=== PATIENT | male | born 1960 | race African-American/Black ===

== ENCOUNTER 2021-06-12 00:30 | Day surgery (SDC) | payer MEDICARE, SELFPAY ==
[2021-06-04 13:16] VITALS: BMI 29.0
[2021-06-12 09:46] VITALS: BP 152/103; PULSE 67; RESP 18; TEMP 36.2; O2SAT 96; BMI 24.5
--- NOTE | 2021-06-12 09:53 | P.PNAN_ITS ---
Anes - Initial Pre Proc Eval Procedure: Operation Date: 06/12/21 11:00 Proposed Procedures p Screening Colonoscopy - Orestes Durant MD Date/Time: 06/12/21 09:53 Surgeon: Orestes Durant MD Pre Op Diagnosis: neoplasm screening Patient Data Age: 61 Gender: M Height: 1.85 m Weight: 84.6 kg Last Vital Signs Temp 36.2 C L 06/12/21 09:46 Pulse 67 06/12/21 09:46 Resp 18 06/12/21 09:46 BP 152/103 H 06/12/21 09:46 Pulse Ox 96 06/12/21 09:46 Allergies Allergy/AdvReac Type Severity Reaction Status Date / Time No Known Allergies Allergy Verified 06/12/21 09:45 Home Medications Medication Instructions Recorded Confirmed Type albuterol sulfate 2 inh INHALATION Q4H PRN 06/04/21 06/12/21 History amlodipine 10 mg PO DAILY 06/04/21 06/12/21 History atorvastatin 40 mg PO DAILY 06/04/21 06/12/21 History brimonidine 1 drp LEFT EYE DAILY 06/04/21 06/12/21 History dorzolamide-timolol 2 drp EACH EYE DAILY 06/04/21 06/12/21 History fluticasone furoate-vilanterol 1 inh INHALATION DAILY 06/04/21 06/12/21 History [Breo Ellipta] travoprost (benzalkonium) 1 drp OPHTHALMIC (EYE) HS 06/04/21 06/12/21 History [Travatan (with benzalkonium)] Patient hx anesthesia problems: none Family hx anesthesia problems: none Results Review: All pre-operative results and documents have been reviewed as part of the pre-operative evaluation. [facility] Past Medical History Medical History (Updated 06/12/21 @ 10:34 by Orestes Durant MD) Asthma History of heart attack Hyperlipidemia Hypertension SHERRY (obstructive sleep apnea) Social History Social History Smoking status: Never smoker Living arrangements: with family Spiritual care concerns: No Anes - Eval Final PreProcedure Day of Procedure 06/12/21 09:53 Patient weight: normal Heart: regular rate and rhythm Lungs: clear to auscultation and normal air movement Airway: Mallampati scale class II Neurological: alert and oriented Last oral intake: >/= 8 hours ASA classification: III Emergent: no Anesthetic plan: proceed Anesthesia type and monitoring: general GIVS and standard monitoring Results Review: All pre-operative results and documents have been reviewed as part of the pre-operative evaluation. Informed Consent: The patient's anesthetic plan and its attendant risks and benefits were discussed with the patient/family/POA. Questions were solicited and answers provided to the satisfaction of the patient/family/POA.
[2021-06-12] MEDS: LACTATED RINGERS 1,000 ML 150 ML IV CONT (10:01)
--- NOTE | 2021-06-12 10:33 | WPDGICN ---
Assessment and Plan Assessment and plan (1) Encounter for screening colonoscopy: Code(s): Z12.11 - Encounter for screening for malignant neoplasm of colon Status: Acute Assessment and Plan: Patient presents today for screening colonoscopy. Appears to be at average risk for colon polyp. GI Consult Note Consult date/time: 06/12/21 10:33 HPI: Jesus Cooper is a 61 year old male Presents for screening colonoscopy. Patient's current weight appetite bowel movements are normal. Patient denies abdominal pain. He has had no bleeding. Family history is noncontributory. Neoplasia screening colonoscopy to be performed today. Review of Systems Review of Systems: All systems reviewed & are unremarkable except as noted in HPI and below PMFSH Past Medical History Medical History (Updated 06/12/21 @ 10:34 by Orestes Durant MD) Asthma History of heart attack Hyperlipidemia Hypertension SHERRY (obstructive sleep apnea) Social History Social History Smoking status: Never smoker Living arrangements: with family Spiritual care concerns: No Meds Home Medications and Allergies Home Medications Medication Instructions Recorded Confirmed Type albuterol sulfate 2 inh INHALATION Q4H PRN 06/04/21 06/12/21 History amlodipine 10 mg PO DAILY 06/04/21 06/12/21 History atorvastatin 40 mg PO DAILY 06/04/21 06/12/21 History brimonidine 1 drp LEFT EYE DAILY 06/04/21 06/12/21 History dorzolamide-timolol 2 drp EACH EYE DAILY 06/04/21 06/12/21 History fluticasone furoate-vilanterol 1 inh INHALATION DAILY 06/04/21 06/12/21 History [Breo Ellipta] travoprost (benzalkonium) 1 drp OPHTHALMIC (EYE) HS 06/04/21 06/12/21 History [Travatan (with benzalkonium)] Allergies Allergy/AdvReac Type Severity Reaction Status Date / Time No Known Allergies Allergy Verified 06/12/21 09:45 Vital Signs Vital Signs - 24 hr 06/12/21 09:46 Temperature 97.2 F L Pulse Rate 67 Respiratory Rate 18 Blood Pressure 152/103 H Pulse Oximetry 96 Exam Narrative: Physical exam reveals patient to be alert. Vital signs stable. HEENT exam is unremarkable. Patient is anicteric. Lungs are clear to auscultation and percussion. Heart is without murmur or extra sounds. Abdominal exam bowel sounds are present soft nontender with no hepatosplenomegaly. Digital external rectal exam is normal.
[2021-06-12] MEDS: SIMETHICONE ORAL SUSPENSION 20 MG/0.3 ML 30 ML BOTTLE 0.6 ML IRRIGATION (10:51)
[2021-06-12 10:53] VITALS: BP 98/64; PULSE 64; RESP 17; O2SAT 98
[2021-06-12 11:03] VITALS: BP 105/69; PULSE 60; RESP 17; O2SAT 99
== END 2021-06-12 11:34 | disposition home or self-care (01) ==
PROVIDERS: PCP Student in an Organized Health Care Education/Training Program; Visit Provider Internal Medicine Gastroenterology
PROC: 0DJD8ZZ Inspection of Lower Intestinal Tract, Via Natural or Artificial Opening Endoscopic (ICD-10-PCS; CPT 45378; principal; 2021-06-12 11:00)
DX: Z12.11 Encounter for screening for malignant neoplasm of colon (principal); K64.8 Other hemorrhoids; K57.30 Diverticulosis of large intestine without perforation or abscess without bleeding; J45.909 Unspecified asthma, uncomplicated; I10 Essential (primary) hypertension; E78.5 Hyperlipidemia, unspecified; I25.2 Old myocardial infarction; G47.33 Obstructive sleep apnea (adult) (pediatric); Z79.51 Long term (current) use of inhaled steroids
CPT/HCPCS: G0121; J2704; J7120